=== PATIENT | male | born 1990 | race African-American/Black ===

== ENCOUNTER 2017-03-08 08:44 | Emergency (ER) | payer OTHER ==
[~2017-03-08] VITALS: Ht 170.2 cm; Wt 54.4 kg
--- NOTE | 2017-03-08 08:53 | ED AMS/SEIZURE/WEAK/DIZZY ---
History of Present Illness General Chief Complaint: General Adult Stated Complaint: S/P RAPID RESPONSE - "SEIZURE LIKE ACTIVITY" Source: patient Exam Limitations: no limitations Vital Signs & Intake/Output Vital Signs & Intake/Output Vital Signs Date Time Temp Pulse Resp B/P B/P Pulse O2 O2 Flow FiO2 Mean Ox Delivery Rate 03/08 1030 100 Room Air 03/08 1030 97.6 78 20 107/54 100 Room Air 03/08 0846 95.6 109 20 125/57 100 Nasal 2.0L Cannula Allergies Coded Allergies: No Known Allergies (03/08/17) Triage Nurses Notes Reviewed? yes Onset: Just prior to arrival Duration: minute(s):, gone now Timing: single episode today Injury Environment: hospital hyperbaric oxygen chamber Severity: severe HPI: Patient presents for evaluation of a new onset seizure while having the hyperbaric oxygen treatment just prior to arrival. Patient denies any symptoms prior to entering the chamber. According to wound care staff the patient had a tonic-clonic seizure with frothing at the mouth that lasted about 2 minutes. Patient currently has no complaint although has little recall of the event. Past History Travel History Traveled to [place] past 21 day No Medical History Any Pertinent Medical History? see below for history Other Medical Hx: Paraplegia Surgical History Surgical History: non-contributory Family History Hx Contributory? No Review of Systems Review of Systems Constitutional: Reports: no symptoms. EENTM: Reports: no symptoms. Respiratory: Reports: no symptoms. Cardiovascular: Reports: no symptoms. GI: Reports: no symptoms. Genitourinary: Reports: no symptoms. Musculoskeletal: Reports: no symptoms. Skin: Reports: no symptoms. Neurological/Psychological: Reports: tonic-clonic seizures. Hematologic/Endocrine: Reports: no symptoms. Immunologic/Allergic: Reports: no symptoms. All Other Systems: Reviewed and Negative Physical Exam Physical Exam General Appearance: see below Comments: Gen.: Well-nourished, no acute respiratory distress. Mildly confused but otherwise cooperative and following commands. Head: Normocephalic, atraumatic. Eyes: Normal inspection bilaterally Ears: Normal inspection bilaterally Nose: Normal inspection Throat/mouth : Moist mucosa Neck: Supple, full range of motion, no goiter Heart: Regular rate and rhythm, no murmurs rubs or gallops Lungs: Rales and rhonchi over the right chest Chest: Nontender Back: Normal range of motion Abdomen: Soft, nontender, nondistended, normal bowel sounds Extremities: Contracted lower extremities, no cyanosis, moving upper extremities spontaneously, no tonic-clonic activity Neurologic: Cranial nerves grossly intact, speech is clear Skin: warm and dry Psychiatric: Calm, cooperative, no apparent delusions or hallucinations Core Measures ACS in differential dx? No CVA/TIA Diagnosis No Sepsis Present: No Sepsis Focused Exam Completed? No Progress Differential Diagnosis: new-onset seizure, treatment side effect, aspiration pneumonia Plan of Care: Orders Procedure Date/time Status Saline Lock 03/08 852 Active COMPREHENSIVE METABOLIC PANEL 03/08 852 Complete CBC WITHOUT DIFFERENTIAL 03/08 852 Complete EKG 03/08 852 Active Laboratory Tests 03/08/17 0945: Anion Gap 13, Estimated GFR > 60, BUN/Creatinine Ratio 24.0, Glucose 82, Calcium 9.2, Total Bilirubin 0.5, AST 17, ALT 30, Alkaline Phosphatase 105, Total Protein 6.6, Albumin 3.9, Globulin 2.7, Albumin/Globulin Ratio 1.4 03/08/17 0908: CBC w Diff NO MAN DIFF REQ, RBC 4.80, MCV 86.5, MCH 27.7, RDW 11.9, MPV 8.3, Gran % 52.6, Lymphocytes % 27.9, Monocytes % 8.5, Eosinophils % 9.3 H, Basophils % 1.7, Absolute Granulocytes 3.3, Absolute Lymphocytes 1.8, Absolute Monocytes 0.5, Absolute Eosinophils 0.6, Absolute Basophils 0.1, PUBS MCHC 32.0 L Diagnostic Imaging: Viewed by Me: Radiology Read. Discussed w/RAD: Radiology Read. Radiology Impression: PATIENT: PAT LUGO PRESENT AGE: 27 PATIENT ACCOUNT NO: [id number] : 91 LOCATION: [facility] ORDERING PHYSICIAN: Kenny Barrientos MD SERVICE DATE: 03/08/17 EXAM TYPE: CAT - CT HEAD WO IV CONTRAST EXAMINATION: CT HEAD WITHOUT CONTRAST CLINICAL INFORMATION: Right occipital and frontal headache after seizure. COMPARISON: None TECHNIQUE: Contiguous axial imaging was performed from the skull base to vertex without intravenous administration of contrast. DLP: 622.24 mGy-cm FINDINGS: There is no evidence of acute intracranial hemorrhage or territorial infarction. No abnormal mass effect or midline shift is seen. Bill to white matter differentiation is well preserved. No extra-axial fluid collections are identified. The ventricles are normal in size. There is no abnormal attenuation within the brain parenchyma. The osseous structures and soft tissues are normal. The mastoid air cells and visualized portions of the paranasal sinuses are well aerated. IMPRESSION: No acute intracranial pathology. Essentially unremarkable examination. DICTATED BY: Angle Henriquez MD DATE/TIME DICTATED:03/08/171116 PYROTECHNICIAN:ANDREAS DATE/TIME TRANSCRIBED:03/08/171116 CONFIDENTIAL, DO NOT COPY WITHOUT APPROPRIATE AUTHORIZATION. <Electronically signed in Other Vendor System> SIGNED BY: Angle Henriquez MD 03/08/17 1123 CXR Impression: PATIENT: PAT LUGO PRESENT AGE: 27 PATIENT ACCOUNT NO: [id number] : 91 LOCATION: [facility] ORDERING PHYSICIAN: Kenny Barrientos MD SERVICE DATE: 03/08/17 EXAM TYPE: RAD - XRY-PORTABLE CHEST XRAY EXAMINATION: XR PORTABLE CHEST CLINICAL INFORMATION: 27-year-old male patient with seizure. Right-sided rales. COMPARISON: Chest x-ray on 02/28/2017. (Normal). TECHNIQUE: Portable AP semierect view of the chest was obtained. FINDINGS: No significant abnormality is noted involving the heart, lungs, mediastinum, bony thorax or soft tissues. Deformity involving the posterior aspect of the left sixth rib is attributed to prior trauma. IMPRESSION: No evidence of aspiration pneumonia. DICTATED BY: Margarito Bowen MD DATE/TIME DICTATED:03/08/171037 PYROTECHNICIAN:ANDREAS DATE/TIME TRANSCRIBED:1037 CONFIDENTIAL, DO NOT COPY WITHOUT APPROPRIATE AUTHORIZATION. < Electronically signed in Other Vendor System> SIGNED BY: Margarito Bowen MD 03/08/17 1044 Initial ED EKG: NSR, diffuse ST segment elevations-unchanged compared with prior. Prior EKG: unchanged Comments: 03/08/2017 10:12:44 AM I have updated PAT and his mother on test results currently. He is now describing a right occipital and bifrontal headache, 4 out of 10 in intensity, described as a dull aching pain. Patient has no difficulty moving his neck. His neurologic examination is unremarkable at this time. CT scan ordered. 03/08/2017 12:10:34 PM I have updated the patient and his mother on test results. His mother states that he is back to baseline mentation. Departure Departure Disposition: HOME OR SELF CARE Condition: Stable Clinical Impression Primary Impression: Seizure Referrals: Unknown (PCP/Family) Peng CASAREZ,Renetta Coley Additional Instructions: Follow-up with your usual appointment for wound care on Monday. Follow-up with the neurologist (Dr. Khoury) listed for reevaluation of this seizure episode. Follow-up with the [place] primary care practice ( ) for general medical evaluation as soon as possible. Return if any concerns or sudden worsening. Please note that there might be incidental findings in your evaluation that are unrelated to the current emergency department visit. Please notify your primary care doctor about this emergency department visit in order to obtain and review all of the testing performed so that these incidental findings can be monitored as needed. If you had an x-ray performed, please understand that some fractures may not be seen on the initial set of x-rays. If your symptoms persist you might need a repeat set of x-rays to check for such a fracture. If you had a laceration evaluated, please understand that foreign bodies such as glass or wood may not be visible to the naked eye or on plain x-rays. If the wound becomes red, swollen, increasingly more painful or if there is any drainage from the wound, please have it reevaluated by a physician for the possibility of a retained foreign body. If you're unable to follow up as outlined in the discharge instructions please return to the emergency department. Thank you for choosing the [facility] Emergency Department for your care. It was a pleasure to serve you today. Kenny Barrientos M.D. [facility] Departure Forms: Customer Survey General Discharge Information
[2017-03-08 09:16] LABS: ABSOLUTE BASOPHIL COUNT 0.1 /CUMM (0.0-0.2); ABSOLUTE EOSINOPHIL COUNT 0.6 /CUMM (0.0-0.7); ABSOLUTE GRANULOCYTE CT 3.3 /CUMM (1.4-6.5); ABSOLUTE LYMPH COUNT 1.8 /CUMM (1.2-3.4); ABSOLUTE MONOCYTE COUNT 0.5 /CUMM (0.10-0.60); BASOPHIL % 1.7 % (0.0-2.0); EOSINOPHIL % 9.3 % (0-5); GRANULOCYTE % 52.6 % (42.2-75.2); HEMATOCRIT 41.6 % (42-52); MEAN CORPUSCULAR HGB 27.7 PG (27.0-31.0); MEAN CORPUSCULAR VOLUME 86.5 FL (80.0-94.0); MEAN PLATELET VOLUME 8.3 FL (7.4-10.4); PLATELET COUNT 206 /CUMM (130-400); RBC DISTRIBUTION WIDTH 11.9 % (11.5-14.5); WHITE BLOOD CELL COUNT 6.3 /CUMM (4.8-10.8)
--- NOTE | 2017-03-08 10:44 | RADIOLOGY REPORT ---
EXAMINATION: XR PORTABLE CHEST CLINICAL INFORMATION: 27-year-old male patient with seizure. Right-sided rales. COMPARISON: Chest x-ray on 02/28/2017. (Normal). TECHNIQUE: Portable AP semierect view of the chest was obtained. FINDINGS: No significant abnormality is noted involving the heart, lungs, mediastinum, bony thorax or soft tissues. Deformity involving the posterior aspect of the left sixth rib is attributed to prior trauma. IMPRESSION: No evidence of aspiration pneumonia.
--- NOTE | 2017-03-08 11:23 | CT SCAN REPORT ---
EXAMINATION: CT HEAD WITHOUT CONTRAST CLINICAL INFORMATION: Right occipital and frontal headache after seizure. COMPARISON: None TECHNIQUE: Contiguous axial imaging was performed from the skull base to vertex without intravenous administration of contrast. DLP: 622.24 mGy-cm FINDINGS: There is no evidence of acute intracranial hemorrhage or territorial infarction. No abnormal mass effect or midline shift is seen. Bill to white matter differentiation is well preserved. No extra-axial fluid collections are identified. The ventricles are normal in size. There is no abnormal attenuation within the brain parenchyma. The osseous structures and soft tissues are normal. The mastoid air cells and visualized portions of the paranasal sinuses are well aerated. IMPRESSION: No acute intracranial pathology. Essentially unremarkable examination.
[2017-03-08 12:17] VITALS: BP 110/60
== END 2017-03-08 12:18 ==
LOC: ERH 08:44
PROVIDERS: Emergency Medicine
DX: R56.9 Unspecified convulsions (principal); R51 Headache
CPT/HCPCS: 71045; 93005; 93010

== ENCOUNTER → 2017-04-27 | Day surgery (SDC) | payer OTHER ==
--- NOTE | 2017-04-27 11:24 | Operative Report ---
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 The patient is paraplegic. Wound has gone on for a long time and is fairly deep in the previous office exam. We talked about making the skin defect. In assessing the bone with an ostectomy to be performed with evaluation the microbiology and pathology. We talked about the risks of bleeding infection pain. This was agreed to informed consent was signed. Was taken to the operating room placed supine on the table. Into venous sedation was given he was put in the right side down position. The left buttock was prepped and draped in usual sterile fashion. Electrocautery was used to create a skin defect full-thickness approximately 2 cm. This was brought down to a cavity of granulation tissue. There was some intact but flimsy coverage of the left tissue and an ostectomy was performed a portion of which was sent for micro-and path analysis. The wound was made hemostatic and packed.
== END ==
LOC: STS 01:17
DX: L89.324 Pressure ulcer of left buttock, stage 4 (principal); G82.20 Paraplegia, unspecified; K59.2 Neurogenic bowel, not elsewhere classified; K59.09 Other constipation
CPT/HCPCS: 87070; 87075; 87071; 87147; 88307; C9399; J0131; J0690; J2250

== ENCOUNTER → 2017-07-06 | Day surgery (SDC) | payer OTHER ==
[~2017-07-06] VITALS: Ht 167.6 cm; Wt 53.5 kg
--- NOTE | 2017-07-06 14:50 | Operative Report ---
Operative/Inv Procedure Report Surgery Date: 07/06/17 Name of Procedure: Debridement left ischial wound including ostectomy of left ischium Pre-Operative Diagnosis: Chronic open wound left buttock secondary to paraplegia and pressure Post-Operative Diagnosis: Same Estimated Blood Loss: scant Surgeon/Supervisor Road Administrator: Blu Aranda MD Anesthesia: moderate sedation Operative/Procedure Note Note: The patient and his mother were counseled in regards to the procedure the alternatives the risks and expected outcomes as relates to her request for evaluation and debridement of a chronic left ischial wound. The skin is closing leaving and opened that space and the VAC cannot be used adequately. We discussed making the wound larger and sampling the bone and removing the bursa cavity. Talked about infection bleeding pain and numbness is a possibility of the results from surgery as well as possibility of needing of a flap for final closure. Informed consent was signed. Was taken to the operating room placed lateral on the operating table. Intravenous sedation was given the buttock was prepped and draped in usual sterile fashion. Full-thickness excision around scar and the open wound of the left tissue was carried out. There was some bursa tissue. The bone was not grossly exposed but had overlying granulation tissue. An ostectomy was performed a portion of which was sent for micron path analysis. There was no tracking. Debridement and cauterization of the bursa cavity was then carried out. It was irrigated and packed. Ends dictation
== END ==
LOC: STS 02:20
DX: L89.159 Pressure ulcer of sacral region, unspecified stage (principal); G82.20 Paraplegia, unspecified
CPT/HCPCS: 87070; 87075; 87184; 87147; J0690; J2250

== ENCOUNTER → 2017-08-25 | Day surgery (SDC) | payer OTHER ==
[~2017-08-25] VITALS: Ht 167.6 cm; Wt 53.5 kg
--- NOTE | 2017-08-25 16:58 | Operative Report ---
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 No guarantees were given. The patient has tried conservative measures with multiple debridements and has not progressed. He has a large bursa. We talked about the risks of partial complete loss of the flap infection open wound chronic pain numbness bleeding and infection. Once agreed to informed consent was signed. Was taken to the operating room and intubated on the stretcher after the application of Venodyne boots. He was put in the prone position and appropriately padded. Intravenous antibiotics were given. The buttock was prepped and draped in usual sterile fashion. Ethylene blue was instilled into the defect overlying the left ischium. Triangular excision was then carried out over the wound. The entire bursa which was stained blue was completely excised. Curvilinear incision was made inferiorly then laterally to the upper buttock. Subcutaneous tissue was divided with the use electrocautery and an extension of the gluteus madison muscle was left inferiorly and the muscle was elevated in the proper plane. It was rotated tension-free into position and sutured with approximately 4 layers of suturing over drain. Of note an ostectomy was performed portions of the pre-and post ostectomy and debridement was sent separately. Bone stock was solid. There was even some further debridement after the final pathology was taken. In 6 to
== END ==
LOC: STS 03:27
DX: I96 Gangrene, not elsewhere classified (principal); L89.324 Pressure ulcer of left buttock, stage 4; G82.20 Paraplegia, unspecified; N31.8 Other neuromuscular dysfunction of bladder; Z95.828 Presence of other vascular implants and grafts
CPT/HCPCS: 87070; 87075; 88304; 88307; J0690; J2250; Q9968